=== PATIENT | female | born 1975 | race Caucasian/White ===

== ENCOUNTER 2017-07-19 15:41 | Inpatient (IN) | payer MEDICARE, MEDICAID ==
[~2017-07-19] VITALS: Ht 163.8 cm; Wt 90.3 kg
[~2017-07-19 15:41] MED LIST: BUSPAR10 MG PO; CARAFATE1 G PO; CYMBALTA30 MG PO; HYDROCODON-ACE1 EAC3 PO; PROTONIX40 MG PO; XANAX0.5 MG PO; ZANAFLEX2 M1 PO
[2017-07-19 18:21] LABS: BASOPHILS 0.4 % (0-2); EOSINOPHILS 4.9 % (0-7); HEMATOCRIT 39.9 % (36.0-48.0); HEMOGLOBIN 13.2 g/dL (12-16); IMMATURE GRANULOCYTES 0.1 % (0-5); LYMPHOCYTES 37.7 % (15-50); MCH 29.5 pg (26.0-34.0); MCHC 33.1 g/dL (31.0-37.0); MCV 89.3 fL (80.0-100.0); MEAN PLATELET VOLUME 9.8 fL (7.4-10.4); MONOCYTES 7.4 % (2-11); NEUTROPHILS 49.5 % (40-80); PLATELET COUNT 307 10x3/uL (130-400); RBC 4.47 10x6/uL (4.00-5.40); RDW 12.8 % (11.5-14.5)
[2017-07-19 18:49] LABS: APPEARANCE CLEAR (CLEAR); BILIRUBIN NEGATIVE (NEGATIVE); COLOR YELLOW (YELLOW); GLUCOSE NEGATIVE (NEGATIVE); KETONE NEGATIVE (NEGATIVE); NITRITE NEGATIVE (NEGATIVE); PROTEIN NEGATIVE (NEGATIVE); UROBILINOGEN NORMAL (NORMAL)
[2017-07-19 18:51] LABS: ALBUMIN 3.9 g/dL (3.4-5.0); ALKALINE PHOSPHATASE 72 U/L (46-116); ALT (SGPT) 28 U/L (10-68); CALC OSMOLALITY 276 mosm/kg (275-300); CALCIUM 9.2 mg/dL (8.5-10.1); CARBON DIOXIDE 25.1 mmol/L (21.0-32.0); CHLORIDE - SERUM 103 mmol/L (98-107); CREATININE - SERUM 0.8 mg/dL (0.6-1.3); GLUCOSE 92 mg/dL (74-106); LIPASE 208 U/L (73-393); POTASSIUM - SERUM 4.3 mmol/L (3.5-5.1); PROTEIN - SERUM 7.4 g/dL (6.4-8.2); SODIUM 139 mmol/L (136-145); UREA NITROGEN 9 mg/dL (7-18); eGFR NON AFRICAN AMERICAN 84 mL/min (90-120)
[2017-07-19 19:15] LABS: HCG SERUM NEGATIVE (NEGATIVE)
[2017-07-20] MEDS ORDERED: CALAN SR120 MG PO (01:59)
[2017-07-20] MEDS ORDERED: VALIUM 2 MG TAB2 MG PO (01:59)
[2017-07-20] MEDS ORDERED: ZANTAC300 MG PO (01:59)
[2017-07-20] MEDS ORDERED: RISPERDAL1 MG PO (02:00)
[2017-07-20] MEDS ORDERED: ZOFRAN4 MG PO (02:01)
[2017-07-20] MEDS ORDERED: NORCO 7.5/325 T1 TA1 PO (02:01)
[2017-07-20] MEDS ORDERED: TORADOL10 MG PO (02:02)
[2017-07-20] MEDS ORDERED: PHENERGAN25 M1 PO (02:02)
[2017-07-20] MEDS ORDERED: LIPITOR10 MG PO (02:03)
[2017-07-20 04:05] VITALS: BP 117/84; BMI 33.7
[2017-07-20 04:29] VITALS: BP 110/49
[2017-07-20 05:01] LABS: BASOPHILS 0.2 % (0-2); EOSINOPHILS 2.6 % (0-7); HEMATOCRIT 37.8 % (36.0-48.0); HEMOGLOBIN 12.1 g/dL (12-16); IMMATURE GRANULOCYTES 0.2 % (0-5); LYMPHOCYTES 13.5 % (15-50); MCH 28.7 pg (26.0-34.0); MCV 89.8 fL (80.0-100.0); MEAN PLATELET VOLUME 10.4 fL (7.4-10.4); MONOCYTES 6.1 % (2-11); NEUTROPHILS 77.4 % (40-80); PLATELET COUNT 289 10x3/uL (130-400); RBC 4.21 10x6/uL (4.00-5.40); RDW 12.7 % (11.5-14.5); WBC 10.1 10x3/uL (4.8-10.8)
[2017-07-20 05:09] LABS: ALBUMIN 3.4 g/dL (3.4-5.0); ALKALINE PHOSPHATASE 77 U/L (46-116); CALC OSMOLALITY 276 mosm/kg (275-300); CALCIUM 8.1 mg/dL (8.5-10.1); CARBON DIOXIDE 23.9 mmol/L (21.0-32.0); CHLORIDE - SERUM 105 mmol/L (98-107); CREATININE - SERUM 0.8 mg/dL (0.6-1.3); GLUCOSE 99 mg/dL (74-106); POTASSIUM - SERUM 3.7 mmol/L (3.5-5.1); PROTEIN - SERUM 6.8 g/dL (6.4-8.2); SODIUM 140 mmol/L (136-145); UREA NITROGEN 8 mg/dL (7-18); eGFR NON AFRICAN AMERICAN 84 mL/min (90-120)
[2017-07-20 05:26] LABS: ALT (SGPT) 112 U/L (10-68)
[2017-07-20 09:11] VITALS: BP 124/80
[2017-07-20 12:46] VITALS: BP 104/46
[2017-07-20 13:34] VITALS: Ht 163.8 cm; Wt 90.3 kg
[2017-07-20 16:46] VITALS: BP 102/62
[2017-07-20 20:00] VITALS: BP 99/60
[2017-07-21] VITALS: BP 94/50
[2017-07-21 04:00] VITALS: BP 94/57
[2017-07-21 05:48] LABS: BASOPHILS 0.3 % (0-2); EOSINOPHILS 4.4 % (0-7); HEMOGLOBIN 10.7 g/dL (12-16); IMMATURE GRANULOCYTES 0.2 % (0-5); LYMPHOCYTES 32.4 % (15-50); MCH 28.6 pg (26.0-34.0); MCHC 31.5 g/dL (31.0-37.0); MCV 90.9 fL (80.0-100.0); MEAN PLATELET VOLUME 10.1 fL (7.4-10.4); MONOCYTES 7.7 % (2-11); PLATELET COUNT 243 10x3/uL (130-400); RBC 3.74 10x6/uL (4.00-5.40)
[2017-07-21 06:18] LABS: WBC 5.9 10x3/uL (4.8-10.8)
[2017-07-21 06:43] LABS: ALBUMIN 2.7 g/dL (3.4-5.0); ALKALINE PHOSPHATASE 65 U/L (46-116); BILIRUBIN - TOTAL 0.49 mg/dL (0.2-1.3); CALC OSMOLALITY 277 mosm/kg (275-300); CALCIUM 7.9 mg/dL (8.5-10.1); CARBON DIOXIDE 21.3 mmol/L (21.0-32.0); CHLORIDE - SERUM 109 mmol/L (98-107); CREATININE - SERUM 0.8 mg/dL (0.6-1.3); GLUCOSE 87 mg/dL (74-106); POTASSIUM - SERUM 3.8 mmol/L (3.5-5.1); PROTEIN - SERUM 5.7 g/dL (6.4-8.2); SODIUM 141 mmol/L (136-145); UREA NITROGEN 6 mg/dL (7-18); eGFR NON AFRICAN AMERICAN 84 mL/min (90-120)
[2017-07-21 06:44] LABS: ALT (SGPT) 78 U/L (10-68)
[2017-07-21 08:48] VITALS: BP 117/69
[2017-07-21 12:13] VITALS: BP 96/56
[2017-07-21 16:12] VITALS: BP 119/60
[2017-07-21 21:39] VITALS: BP 112/67
[2017-07-22 05:33] LABS: BASOPHILS 0.5 % (0-2); EOSINOPHILS 5.2 % (0-7); HEMOGLOBIN 10.6 g/dL (12-16); IMMATURE GRANULOCYTES 0.2 % (0-5); LYMPHOCYTES 32.9 % (15-50); MCH 28.6 pg (26.0-34.0); MCHC 32.1 g/dL (31.0-37.0); MEAN PLATELET VOLUME 9.8 fL (7.4-10.4); MONOCYTES 8.9 % (2-11); NEUTROPHILS 52.3 % (40-80); PLATELET COUNT 236 10x3/uL (130-400); RBC 3.71 10x6/uL (4.00-5.40); RDW 12.7 % (11.5-14.5); WBC 5.6 10x3/uL (4.8-10.8)
[2017-07-22 05:34] VITALS: BP 98/51
[2017-07-22 05:36] LABS: MCV 88.9 fL (80.0-100.0)
[2017-07-22 05:53] LABS: ALBUMIN 2.9 g/dL (3.4-5.0); ALKALINE PHOSPHATASE 59 U/L (46-116); ALT (SGPT) 62 U/L (10-68); CALC OSMOLALITY 278 mosm/kg (275-300); CALCIUM 8.1 mg/dL (8.5-10.1); CARBON DIOXIDE 24.2 mmol/L (21.0-32.0); CHLORIDE - SERUM 108 mmol/L (98-107); CREATININE - SERUM 0.8 mg/dL (0.6-1.3); GLUCOSE 92 mg/dL (74-106); POTASSIUM - SERUM 3.7 mmol/L (3.5-5.1); PROTEIN - SERUM 5.8 g/dL (6.4-8.2); SODIUM 141 mmol/L (136-145); UREA NITROGEN 7 mg/dL (7-18); eGFR NON AFRICAN AMERICAN 84 mL/min (90-120)
[2017-07-22 08:09] VITALS: BP 92/59
[2017-07-22 12:52] VITALS: BP 102/60
[2017-07-22 16:55] VITALS: BP 114/70
[2017-07-22 22:49] VITALS: BP 101/65
[2017-07-23 02:50] VITALS: BP 99/58
[2017-07-23 05:06] LABS: BASOPHILS 0.4 % (0-2); EOSINOPHILS 6.2 % (0-7); HEMATOCRIT 33.3 % (36.0-48.0); HEMOGLOBIN 10.7 g/dL (12-16); IMMATURE GRANULOCYTES 0.2 % (0-5); LYMPHOCYTES 34.5 % (15-50); MCH 28.5 pg (26.0-34.0); MCHC 32.1 g/dL (31.0-37.0); MCV 88.8 fL (80.0-100.0); MONOCYTES 6.9 % (2-11); NEUTROPHILS 51.8 % (40-80); PLATELET COUNT 235 10x3/uL (130-400); RBC 3.75 10x6/uL (4.00-5.40); RDW 12.7 % (11.5-14.5); WBC 5.5 10x3/uL (4.8-10.8)
[2017-07-23 05:27] LABS: ALBUMIN 2.9 g/dL (3.4-5.0); ANION GAP 13.5 mmol/L (8-16); BILIRUBIN - TOTAL 0.32 mg/dL (0.2-1.3); CALCIUM 8.1 mg/dL (8.5-10.1); CARBON DIOXIDE 24.2 mmol/L (21.0-32.0); CREATININE - SERUM 0.9 mg/dL (0.6-1.3); POTASSIUM - SERUM 3.7 mmol/L (3.5-5.1); PROTEIN - SERUM 5.8 g/dL (6.4-8.2)
[2017-07-23 05:54] VITALS: BP 101/61
[2017-07-23 07:06] VITALS: BP 105/63
[2017-07-23 11:02] VITALS: BP 96/51
[2017-07-23 15:13] VITALS: BP 111/66
[2017-07-23 21:40] VITALS: BP 109/58
[2017-07-24 02:38] VITALS: BP 101/52
[2017-07-24 05:25] LABS: BASOPHILS 0.5 % (0-2); EOSINOPHILS 5.2 % (0-7); HEMATOCRIT 35.3 % (36.0-48.0); HEMOGLOBIN 11.5 g/dL (12-16); IMMATURE GRANULOCYTES 0.2 % (0-5); LYMPHOCYTES 30.3 % (15-50); MCH 28.9 pg (26.0-34.0); MCHC 32.6 g/dL (31.0-37.0); MCV 88.7 fL (80.0-100.0); MEAN PLATELET VOLUME 10.1 fL (7.4-10.4); MONOCYTES 8.5 % (2-11); NEUTROPHILS 55.3 % (40-80); PLATELET COUNT 243 10x3/uL (130-400); RBC 3.98 10x6/uL (4.00-5.40); RDW 12.6 % (11.5-14.5); WBC 5.8 10x3/uL (4.8-10.8)
[2017-07-24 05:31] LABS: ALBUMIN 2.9 g/dL (3.4-5.0); ALKALINE PHOSPHATASE 58 U/L (46-116); ALT (SGPT) 57 U/L (10-68); CALC OSMOLALITY 277 mosm/kg (275-300); CALCIUM 8.1 mg/dL (8.5-10.1); CARBON DIOXIDE 22.9 mmol/L (21.0-32.0); CHLORIDE - SERUM 107 mmol/L (98-107); CREATININE - SERUM 0.8 mg/dL (0.6-1.3); GLUCOSE 96 mg/dL (74-106); POTASSIUM - SERUM 3.7 mmol/L (3.5-5.1); PROTEIN - SERUM 5.7 g/dL (6.4-8.2); SODIUM 141 mmol/L (136-145); UREA NITROGEN 4 mg/dL (7-18); eGFR NON AFRICAN AMERICAN 84 mL/min (90-120)
[2017-07-24 08:00] VITALS: BP 124/68
[2017-07-24 11:30] VITALS: BP 121/77
[2017-07-24 15:30] VITALS: BP 113/64
[2017-07-24 22:17] VITALS: BP 141/86
[2017-07-25 00:57] VITALS: BP 110/66
[2017-07-25 06:04] LABS: BASOPHILS 0.6 % (0-2); EOSINOPHILS 6.5 % (0-7); HEMATOCRIT 35.2 % (36.0-48.0); HEMOGLOBIN 11.4 g/dL (12-16); IMMATURE GRANULOCYTES 0.2 % (0-5); LYMPHOCYTES 35.5 % (15-50); MCH 28.6 pg (26.0-34.0); MCHC 32.4 g/dL (31.0-37.0); MCV 88.2 fL (80.0-100.0); MEAN PLATELET VOLUME 10.5 fL (7.4-10.4); MONOCYTES 9.9 % (2-11); NEUTROPHILS 47.3 % (40-80); PLATELET COUNT 232 10x3/uL (130-400); RBC 3.99 10x6/uL (4.00-5.40); RDW 12.7 % (11.5-14.5)
[2017-07-25 06:18] LABS: ALBUMIN 2.9 g/dL (3.4-5.0); ANION GAP 12.9 mmol/L (8-16); BILIRUBIN - TOTAL 0.42 mg/dL (0.2-1.3); CALCIUM 8.3 mg/dL (8.5-10.1); CARBON DIOXIDE 25.5 mmol/L (21.0-32.0); CREATININE - SERUM 0.9 mg/dL (0.6-1.3); POTASSIUM - SERUM 3.4 mmol/L (3.5-5.1); PROTEIN - SERUM 5.8 g/dL (6.4-8.2)
[2017-07-25 07:02] VITALS: BP 121/72
[2017-07-25 11:09] VITALS: BP 108/66
[2017-07-25 15:00] VITALS: BP 123/79
[2017-07-25 23:59] VITALS: BP 138/70
[2017-07-26 04:17] VITALS: BP 148/74
[2017-07-26 07:00] VITALS: BP 105/79
[2017-07-26 11:04] VITALS: BP 123/48
[2017-07-26 15:15] VITALS: BP 100/66
[2017-07-26 20:00] VITALS: BP 133/60
[2017-07-27] VITALS: BP 144/77
[2017-07-27 04:00] VITALS: BP 109/57
[2017-07-27 06:34] LABS: BASOPHILS 0.3 % (0-2); EOSINOPHILS 6.5 % (0-7); HEMATOCRIT 36.2 % (36.0-48.0); HEMOGLOBIN 11.7 g/dL (12-16); IMMATURE GRANULOCYTES 0.2 % (0-5); LYMPHOCYTES 29.4 % (15-50); MCH 28.8 pg (26.0-34.0); MCHC 32.3 g/dL (31.0-37.0); MCV 89.2 fL (80.0-100.0); MEAN PLATELET VOLUME 10.6 fL (7.4-10.4); MONOCYTES 10.4 % (2-11); NEUTROPHILS 53.2 % (40-80); PLATELET COUNT 242 10x3/uL (130-400); RBC 4.06 10x6/uL (4.00-5.40); RDW 12.9 % (11.5-14.5); WBC 5.9 10x3/uL (4.8-10.8)
[2017-07-27 07:22] LABS: ANION GAP 11.4 mmol/L (8-16); BILIRUBIN - TOTAL 0.3 mg/dL (0.2-1.3); CALCIUM 8.3 mg/dL (8.5-10.1); CARBON DIOXIDE 26.3 mmol/L (21.0-32.0); CREATININE - SERUM 0.9 mg/dL (0.6-1.3); POTASSIUM - SERUM 3.7 mmol/L (3.5-5.1)
[2017-07-27] MEDS ORDERED: LEVSIN/ANASP0.125 MG SL (12:38)
[2017-07-27] MEDS ORDERED: COLACE100 MG PO (12:39)
[2017-07-27] MEDS ORDERED: FLORAJEN3 CAPS460 MG PO (12:39)
[2017-07-27 13:22] VITALS: BP 104/59
== END 2017-07-27 14:33 | disposition home or self-care (01) | DRG 392 ==
LOC: D.ER 15:41 → D.MS 15:51
PROVIDERS: Family Medicine; Internal Medicine Gastroenterology; Physician Assistant
DX: K57.92 Diverticulitis of intestine, part unspecified, without perforation or abscess without bleeding (principal); E03.9 Hypothyroidism, unspecified; K21.9 Gastro-esophageal reflux disease without esophagitis; F31.9 Bipolar disorder, unspecified; G40.909 Epilepsy, unspecified, not intractable, without status epilepticus; R41.3 Other amnesia; F12.90 Cannabis use, unspecified, uncomplicated; R19.7 Diarrhea, unspecified; Z87.11 Personal history of peptic ulcer disease

== ENCOUNTER 2017-08-06 20:33 | Emergency (ER) | payer MEDICARE, MEDICAID ==
[2017-07-20 13:34] VITALS: BMI 33.6
[~2017-08-06 20:33] MED LIST changes: +CALAN SR120 MG PO; +COLACE100 MG PO; +FLORAJEN3 CAPS460 MG PO; +LEVSIN/ANASP0.125 MG SL; +LIPITOR10 MG PO; +NORCO 7.5/325 T1 TA1 PO; +PHENERGAN25 M1 PO; +RISPERDAL1 MG PO; +TORADOL10 MG PO; +VALIUM 2 MG TAB2 MG PO; +ZANTAC300 MG PO; +ZOFRAN4 MG PO
[2017-08-06 21:06] LABS: BASOPHILS 0.5 % (0-2); HEMATOCRIT 40.9 % (36.0-48.0); HEMOGLOBIN 13.3 g/dL (12-16); IMMATURE GRANULOCYTES 0.2 % (0-5); LYMPHOCYTES 39.9 % (15-50); MCHC 32.5 g/dL (31.0-37.0); MCV 89.3 fL (80.0-100.0); MONOCYTES 9.4 % (2-11); RBC 4.58 10x6/uL (4.00-5.40); RDW 12.9 % (11.5-14.5); WBC 8.1 10x3/uL (4.8-10.8)
[2017-08-06 21:08] LABS: PLATELET COUNT 307 10x3/uL (130-400)
[2017-08-06 21:35] LABS: APPEARANCE CLEAR (CLEAR); BILIRUBIN NEGATIVE (NEGATIVE); COLOR YELLOW (YELLOW); GLUCOSE NEGATIVE (NEGATIVE); KETONE NEGATIVE (NEGATIVE); NITRITE NEGATIVE (NEGATIVE); PROTEIN NEGATIVE (NEGATIVE); UROBILINOGEN NORMAL (NORMAL)
[2017-08-06 21:42] LABS: BACTERIA FEW /hpf (NONE SEEN); EPITHELIAL CELLS 0-5 /hpf (0-5); MUCUS <1+ /lpf (NONE SEEN); RED CELLS - URINE 0-5 /hpf (0-5); WHITE CELLS - URINE RARE /hpf (0-5)
[2017-08-06 22:13] LABS: ALKALINE PHOSPHATASE 69 U/L (46-116); ALT (SGPT) 36 U/L (10-68); CALC OSMOLALITY 281 mosm/kg (275-300); CALCIUM 9.3 mg/dL (8.5-10.1); CHLORIDE - SERUM 104 mmol/L (98-107); CREATININE - SERUM 0.8 mg/dL (0.6-1.3); GLUCOSE 91 mg/dL (74-106); POTASSIUM - SERUM 4.2 mmol/L (3.5-5.1); PROTEIN - SERUM 7.5 g/dL (6.4-8.2); SODIUM 142 mmol/L (136-145); UREA NITROGEN 10 mg/dL (7-18); eGFR NON AFRICAN AMERICAN 84 mL/min (90-120)
[2017-08-06 22:29] LABS: UDS - AMPHET NEGATIVE QUAL (NEGATIVE); UDS - BARB NEGATIVE QUAL (NEGATIVE); UDS - BENZO NEGATIVE QUAL (NEGATIVE); UDS - COCAINE NEGATIVE QUAL (NEGATIVE); UDS - OPIATE NEGATIVE QUAL (NEGATIVE); UDS - PCP NEGATIVE QUAL (NEGATIVE); UDS - THC POSITIVE QUAL (NEGATIVE)
== END 2017-08-07 01:09 | disposition home or self-care (01) ==
LOC: D.ER 20:33
PROVIDERS: Emergency Medicine; Nurse Practitioner Family
DX: R10.9 Unspecified abdominal pain (principal); R11.2 Nausea with vomiting, unspecified; R19.7 Diarrhea, unspecified; N76.0 Acute vaginitis; B96.89 Other specified bacterial agents as the cause of diseases classified elsewhere; K57.92 Diverticulitis of intestine, part unspecified, without perforation or abscess without bleeding; I10 Essential (primary) hypertension

== ENCOUNTER 2017-09-12 12:02 | Emergency (ER) | payer MEDICARE ==
[2017-07-20 13:34] VITALS: BMI 33.6
[2017-09-12 13:11] LABS: BASOPHILS 0.4 % (0-2); EOSINOPHILS 4.1 % (0-7); HEMATOCRIT 41.6 % (36.0-48.0); IMMATURE GRANULOCYTES 0.1 % (0-5); LYMPHOCYTES 33.6 % (15-50); MCH 29.8 pg (26.0-34.0); MCHC 33.7 g/dL (31.0-37.0); MCV 88.5 fL (80.0-100.0); MEAN PLATELET VOLUME 9.9 fL (7.4-10.4); MONOCYTES 5.9 % (2-11); NEUTROPHILS 55.9 % (40-80); PLATELET COUNT 313 10x3/uL (130-400); WBC 7.6 10x3/uL (4.8-10.8)
[2017-09-12 13:39] LABS: APPEARANCE CLEAR (CLEAR); BACTERIA MODERATE /hpf (NONE SEEN); BILIRUBIN NEGATIVE (NEGATIVE); COLOR YELLOW (YELLOW); EPITHELIAL CELLS 0-5 /hpf (0-5); GLUCOSE NEGATIVE (NEGATIVE); KETONE NEGATIVE (NEGATIVE); MUCUS <1+ /lpf (NONE SEEN); NITRITE NEGATIVE (NEGATIVE); PROTEIN NEGATIVE (NEGATIVE); RED CELLS - URINE OCC /hpf (0-5); SPECIFIC GRAVITY 1.005 (1.005-1.020); UROBILINOGEN NORMAL (NORMAL); WHITE CELLS - URINE RARE /hpf (0-5)
[2017-09-12 13:44] LABS: ALBUMIN 4.1 g/dL (3.4-5.0); BILIRUBIN - TOTAL 0.4 mg/dL (0.2-1.3); CALCIUM 9.1 mg/dL (8.5-10.1); CREATININE - SERUM 0.9 mg/dL (0.6-1.3); PROTEIN - SERUM 8.1 g/dL (6.4-8.2)
[2017-09-12 14:12] LABS: AMYLASE - SERUM 43 U/L (25-115); LIPASE 177 U/L (73-393)
[2017-09-12 14:30] LABS: HCG SERUM NEGATIVE (NEGATIVE)
== END 2017-09-12 15:43 | disposition home or self-care (01) ==
LOC: D.ER 12:02
PROVIDERS: Family Medicine
DX: R10.9 Unspecified abdominal pain (principal); I10 Essential (primary) hypertension

== ENCOUNTER 2018-04-14 14:37 | Emergency (ER) | payer MEDICARE ==
[2017-07-20 13:34] VITALS: Ht 163.8 cm; Wt 70.5 kg
[~2018-04-14] VITALS: Ht 163.8 cm; Wt 70.5 kg
[2018-04-14 17:55] VITALS: BP 140/76
== END 2018-04-14 17:56 | disposition home or self-care (01) ==
LOC: D.ER 14:37
DX: G43.109 Migraine with aura, not intractable, without status migrainosus (principal)

== ENCOUNTER 2018-11-24 16:48 | Emergency (ER) | payer MEDICARE, MEDICAID ==
[~2018-11-24] VITALS: Ht 163.8 cm; Wt 63.6 kg
[2018-11-24 17:26] VITALS: Ht 163.8 cm; Wt 63.6 kg
[2018-11-24] MEDS ORDERED: SEROQUEL100 MG PO (17:30)
[2018-11-24] MEDS ORDERED: HYDROCODON-ACE1 EA10 PO (20:01)
[2018-11-24 20:33] VITALS: BP 106/69
== END 2018-11-24 20:33 | disposition home or self-care (01) ==
LOC: D.ER 16:48
DX: R09.1 Pleurisy (principal)

== ENCOUNTER 2018-12-08 17:16 | Emergency (ER) | payer MEDICARE ==
[~2018-12-08] VITALS: Ht 163.8 cm; Wt 64.1 kg
[~2018-12-08 17:16] MED LIST changes: +HYDROCODON-ACE1 EA10 PO; +SEROQUEL100 MG PO
[2018-12-08 17:33] VITALS: Ht 163.8 cm; Wt 64.1 kg
[2018-12-08 18:09] LABS: BASOPHILS 0.5 % (0-2); EOSINOPHILS 2.2 % (0-7); HEMATOCRIT 38.1 % (36.0-48.0); HEMOGLOBIN 12.9 g/dL (12-16); IMMATURE GRANULOCYTES 0.3 % (0-5); LYMPHOCYTES 34.6 % (15-50); MCH 29.6 pg (26.0-34.0); MCHC 33.9 g/dL (31.0-37.0); MCV 87.4 fL (80.0-100.0); MEAN PLATELET VOLUME 10.4 fL (7.4-10.4); MONOCYTES 6.9 % (2-11); NEUTROPHILS 55.5 % (40-80); PLATELET COUNT 281 10x3/uL (130-400); RBC 4.36 10x6/uL (4.00-5.40); RDW 13.5 % (11.5-14.5); WBC 7.6 10x3/uL (4.8-10.8)
[2018-12-08 18:14] LABS: APPEARANCE CLEAR (CLEAR); BILIRUBIN NEGATIVE (NEGATIVE); COLOR YELLOW (YELLOW); GLUCOSE NEGATIVE (NEGATIVE); KETONE NEGATIVE (NEGATIVE); NITRITE NEGATIVE (NEGATIVE); PROTEIN NEGATIVE (NEGATIVE); SPECIFIC GRAVITY 1.015 (1.005-1.020); UROBILINOGEN NORMAL (NORMAL)
[2018-12-08 18:15] LABS: WHITE CELLS - URINE RARE /hpf (0-5)
[2018-12-08 18:16] LABS: BACTERIA FEW /hpf (NONE SEEN); EPITHELIAL CELLS 0-5 /hpf (0-5); RED CELLS - URINE 0-5 /hpf (0-5)
[2018-12-08 18:16] LABS: ALBUMIN 3.9 g/dL (3.4-5.0); ALKALINE PHOSPHATASE 52 U/L (46-116); ALT (SGPT) 17 U/L (10-68); BILIRUBIN - TOTAL 0.48 mg/dL (0.2-1.3); CALC OSMOLALITY 277 mosm/kg (275-300); CALCIUM 8.7 mg/dL (8.5-10.1); CARBON DIOXIDE 25.5 mmol/L (21.0-32.0); CHLORIDE - SERUM 105 mmol/L (98-107); CREATININE - SERUM 0.9 mg/dL (0.6-1.3); GLUCOSE 80 mg/dL (74-106); POTASSIUM - SERUM 3.6 mmol/L (3.5-5.1); PROTEIN - SERUM 7.2 g/dL (6.4-8.2); SODIUM 141 mmol/L (136-145); UREA NITROGEN 8 mg/dL (7-18); eGFR NON AFRICAN AMERICAN 73 mL/min (90-120)
[2018-12-08 18:21] LABS: UDS - AMPHET NEGATIVE QUAL (NEGATIVE); UDS - BARB NEGATIVE QUAL (NEGATIVE); UDS - BENZO NEGATIVE QUAL (NEGATIVE); UDS - COCAINE NEGATIVE QUAL (NEGATIVE); UDS - OPIATE NEGATIVE QUAL (NEGATIVE); UDS - PCP NEGATIVE QUAL (NEGATIVE); UDS - THC POSITIVE QUAL (NEGATIVE)
[2018-12-08 18:26] LABS: AMYLASE - SERUM 57 U/L (25-115); CKMB 0.6 U/L (0.0-3.6); CREATINE KINASE 93 UL (21-215); LIPASE 148 U/L (73-393); THYROID STIMULATING HORMONE 4.41 uIU/mL (0.36-3.74); TROPONIN-I < 0.017 ng/mL (0.000-0.060)
[2018-12-08 20:35] VITALS: BP 117/54
== END 2018-12-08 20:35 | disposition home or self-care (01) ==
LOC: D.ER 17:16
PROVIDERS: Family Medicine
DX: R11.10 Vomiting, unspecified (principal)

== ENCOUNTER 2018-12-29 17:20 | Emergency (ER) | payer MEDICARE ==
[~2018-12-29] VITALS: Ht 163.8 cm; Wt 61.6 kg
[2018-12-29 17:27] VITALS: Ht 163.8 cm; Wt 61.6 kg
[2018-12-29 17:52] LABS: APPEARANCE CLEAR (CLEAR); BILIRUBIN NEGATIVE (NEGATIVE); COLOR YELLOW (YELLOW); GLUCOSE NEGATIVE (NEGATIVE); KETONE SMALL mg/dL (NEGATIVE); NITRITE NEGATIVE (NEGATIVE); PROTEIN NEGATIVE (NEGATIVE); SPECIFIC GRAVITY 1.025 (1.005-1.020); UROBILINOGEN NORMAL (NORMAL)
[2018-12-29 17:53] LABS: BACTERIA MODERATE /hpf (NONE SEEN); EPITHELIAL CELLS 0-5 /hpf (0-5); MUCUS >1+ /lpf (NONE SEEN); RED CELLS - URINE 0-5 /hpf (0-5); WHITE CELLS - URINE OCC /hpf (0-5)
[2018-12-29 17:58] LABS: BASOPHILS 0.2 % (0-2); EOSINOPHILS 0.4 % (0-7); HEMATOCRIT 38.8 % (36.0-48.0); HEMOGLOBIN 13.5 g/dL (12-16); IMMATURE GRANULOCYTES 0.2 % (0-5); LYMPHOCYTES 12.7 % (15-50); MCH 29.9 pg (26.0-34.0); MCHC 34.8 g/dL (31.0-37.0); MEAN PLATELET VOLUME 10.1 fL (7.4-10.4); MONOCYTES 5.9 % (2-11); NEUTROPHILS 80.6 % (40-80); PLATELET COUNT 283 10x3/uL (130-400); RBC 4.51 10x6/uL (4.00-5.40); RDW 13.4 % (11.5-14.5); WBC 8.3 10x3/uL (4.8-10.8)
[2018-12-29 18:12] LABS: ALKALINE PHOSPHATASE 60 U/L (46-116); ALT (SGPT) 21 U/L (10-68); BILIRUBIN - TOTAL 1.19 mg/dL (0.2-1.3); CALC OSMOLALITY 277 mosm/kg (275-300); CALCIUM 8.9 mg/dL (8.5-10.1); CARBON DIOXIDE 25.8 mmol/L (21.0-32.0); CHLORIDE - SERUM 105 mmol/L (98-107); CREATININE - SERUM 0.8 mg/dL (0.6-1.3); GLUCOSE 97 mg/dL (74-106); POTASSIUM - SERUM 3.6 mmol/L (3.5-5.1); PROTEIN - SERUM 7.6 g/dL (6.4-8.2); SODIUM 140 mmol/L (136-145); UREA NITROGEN 9 mg/dL (7-18); eGFR NON AFRICAN AMERICAN 83 mL/min (90-120)
[2018-12-29 18:34] LABS: AMYLASE - SERUM 40 U/L (25-115); LIPASE 142 U/L (73-393)
[2018-12-29 20:15] VITALS: BP 116/69
== END 2018-12-29 20:15 | disposition home or self-care (01) ==
LOC: D.ER 17:20
PROVIDERS: Family Medicine
DX: R11.2 Nausea with vomiting, unspecified (principal); R19.7 Diarrhea, unspecified

== ENCOUNTER → 2020-07-25 08:28 | Outpatient (CLI) | payer MEDICARE, MEDICAID ==
[2018-12-29 17:27] VITALS: BMI 22.9
== END | disposition home or self-care (01) ==
LOC: D.CT 08:28
PROVIDERS: ATTEND General Practice
DX: E27.9 Disorder of adrenal gland, unspecified (principal)

== ENCOUNTER → 2020-08-26 14:38 | Outpatient (CLI) | payer MEDICARE, MEDICAID ==
[2018-12-29 17:27] VITALS: BMI 22.9
== END | disposition home or self-care (01) ==
LOC: D.MRI 14:38
PROVIDERS: ATTEND General Practice
DX: M54.32 Sciatica, left side (principal)

== ENCOUNTER → 2020-11-05 08:23 | Outpatient (CLI) | payer MEDICARE, MEDICAID ==
[2018-12-29 17:27] VITALS: BMI 22.9
== END | disposition home or self-care (01) ==
LOC: D.US 08:23
PROVIDERS: ATTEND Internal Medicine Nephrology
DX: E27.8 Other specified disorders of adrenal gland (principal); N18.9 Chronic kidney disease, unspecified; Z84.1 Family history of disorders of kidney and ureter; N20.0 Calculus of kidney; Z68.23 Body mass index [BMI] 23.0-23.9, adult